=== PATIENT | female | born 1935 | race Two or more races ===

== ENCOUNTER 2019-08-24 16:06 | Emergency (ER) | payer MEDICARE, OTHER ==
[~2019-08-24] VITALS: Ht 157.5 cm; Wt 42.2 kg
--- NOTE | 2019-08-24 16:30 | NUR ---
SENT DM[facility]RY G[facility]ME[facility], FOUND BESIDES HER BED AT 1230. +LIP LAC NOTED. PATIENT A/OX1-2, BREATHING EVEN AND UNLABORED, NO SOB NOTED. NEEDS ATTENDED.
[2019-08-24] MEDS ORDERED: MAGN400O6 PO (16:36)
[2019-08-24] MEDS ORDERED: OXYC-128 PO (16:36)
[2019-08-24] MEDS ORDERED: BISA10SU11 RC (16:36)
[2019-08-24] MEDS ORDERED: MIRT15TA7 PO (16:36)
[2019-08-24] MEDS ORDERED: ONDA4TAB5 PO (16:36)
[2019-08-24] MEDS ORDERED: CHOL200026 PO (16:36)
[2019-08-24] MEDS ORDERED: ACET-868 PO ×2 (16:36)
[2019-08-24] MEDS ORDERED: QUET25TA PO (16:36)
[2019-08-24] MEDS ORDERED: LORA-259 PO (16:36)
[2019-08-24] MEDS ORDERED: MULT-447 PO (16:36)
[2019-08-24] MEDS ORDERED: AMLO10TA7 PO (16:36)
[2019-08-24] MEDS ORDERED: NA P133E RC (16:36)
[2019-08-24] MEDS ORDERED: DOCU-141 PO (16:36)
--- NOTE | 2019-08-24 16:50 | NUR ---
DR. THOMPSON AT BEDSIDE FOR EVAL.
--- NOTE | 2019-08-24 16:53 | NUR ---
CALLED [facility] [phone] FLU SHOT 05/27/19 TB TEST WAS DONE 03/19/19 PER ED.
[2019-08-24] MEDS ORDERED: TDAP [DIPH/PERTUSSIS/TET] 0.5 ML VIAL IM ONE ×2 (16:56→17:30)
[2019-08-24 17:12] LABS: BASOPHILS # (AUTO) 0.1 /CMM (0.0-0.2); BASOPHILS % (AUTO) 2.5 % (0.0-2.0); EOSINOPHILS % (AUTO) 2.2 % (0.0-6.0); HEMATOCRIT 36 % (33-45); HEMOGLOBIN 11.8 g/dL (11.5-14.8); LYMPHOCYTES # (AUTO) 1.6 /CMM (0.8-4.8); LYMPHOCYTES % (AUTO) 29.9 % (20.0-44.0); MEAN CORPUSCULAR HGB CONC 33 g/dl (31.0-36.0); MEAN CORPUSCULAR VOLUME 91 fL (82-100); MONOCYTES # (AUTO) 0.5 /CMM (0.1-1.30); MONOCYTES % (AUTO) 8.5 % (2.0-12.0); NEUTROPHILS % (AUTO) 56.9 % (43.0-81.0); PLATELET COUNT (AUTO) 282 /CMM (150-450); RED BLOOD CELL COUNT(AUTO) 3.99 MIL/uL (4.0-5.2); WHITE BLOOD COUNT (AUTO) 5.3 K/uL (4.3-11.0)
[2019-08-24] MEDS ORDERED: LIDOCAINE HCL/MPF 1% 30 ML VIAL IJ ONE (17:17)
[2019-08-24 17:20] LABS: CALCIUM, SERUM 9.7 mg/dL (8.5-10.1); CREATININE 0.7 mg/dL (0.6-1.3); POTASSIUM 4.4 mmol/L (3.5-5.1)
[2019-08-24] MEDS ORDERED: LIDOCAINE HCL/PF 1% 30 ML VIAL TP ONE (17:30)
--- NOTE | 2019-08-24 18:55 | NUR ---
IV removed. Catheter intact and site benign. Pressure and 4x4 applied to site. No bleeding noted.Patient discharged to [facility] in stable condition. Written and verbal after care instructions given to daughter and verbalizes understanding of instruction. Family decided to bring her to the facility via car.
[2019-08-24 18:56] VITALS: BP 135/58
== END 2019-08-24 18:56 ==
LOC: ER 16:06
DX: S01.511A Laceration without foreign body of lip, initial encounter (principal); I25.10 Atherosclerotic heart disease of native coronary artery without angina pectoris; E78.5 Hyperlipidemia, unspecified; I10 Essential (primary) hypertension; F41.9 Anxiety disorder, unspecified; F32.9 Major depressive disorder, single episode, unspecified; G30.9 Alzheimer's disease, unspecified; F02.80 Dementia in other diseases classified elsewhere, unspecified severity, without behavioral disturbance, psychotic disturbance, mood disturbance, and anxiety; Z95.0 Presence of cardiac pacemaker; Z79.899 Other long term (current) drug therapy; W18.39XA Other fall on same level, initial encounter; Y93.89 Activity, other specified; Y92.89 Other specified places as the place of occurrence of the external cause; Y99.8 Other external cause status
CPT/HCPCS: 12011; 36415; 70450; 72125; 80048; 85025; 85730; 90471; 90715; 93005; 99285; J3490 ×2